=== PATIENT | female | born 1975 | race Caucasian/White ===

== ENCOUNTER 2022-12-29 15:49 | Emergency (ER) | payer MEDICAID ==
[~2022-12-29] VITALS: Ht 170.2 cm; Wt 79.0 kg
[~2022-12-29 15:49] MED LIST: ACETAZOLAMIDE; CRESTOR; FLURAZEPAM; GABA300S PO; HYDROCODONE; LEVE1000 PO; LORAZEPAM; PREN-55 PO; PROAIR; SINGULAIR; SUMATRIPTAN; TOPI-255 PO
[2022-12-29 15:56] VITALS: BP 176/112
[2022-12-29] MEDS ORDERED: ACETAMINOPHEN 325MG TABLET PO PRN (23:00)
== END 2022-12-30 02:21 | disposition left against medical advice (07) ==
LOC: ER 15:59
DX: Z53.21 Procedure and treatment not carried out due to patient leaving prior to being seen by health care provider (principal); R10.9 Unspecified abdominal pain
CPT/HCPCS: 99281

== ENCOUNTER 2024-01-04 17:25 | Emergency (ER) | payer OTHER, MEDICAID ==
[~2024-01-04] VITALS: Ht 165.1 cm; Wt 95.0 kg
[~2024-01-04 17:25] MED LIST changes: -GABA300S PO; +GABA300S4 PO; -TOPI-255 PO; +TOPI-95 PO
[2024-01-04 17:35] VITALS: BP 119/68; PULSE 86; RESP 16; TEMP 98.2; O2SAT 98
[2024-01-04] MEDS ORDERED: ACETAMINOPHEN 325MG TABLET PO STA (17:50)
[2024-01-04 19:47] LABS: BASOPHILS % 0.9 % (0.0-2.0); EOSINOPHILS % 3.2 % (0.0-5.0); HEMATOCRIT. 42.4 % (36.0-48.0); HEMOGLOBIN. 14.3 g/dL (12.0-16.0); MEAN CORPUSCULAR HEMOGLOBIN 31.7 pg (28.0-32.0); MEAN CORPUSCULAR HGB CONC 33.6 g/dL (31.0-37.0); MEAN CORPUSCULAR VOLUME 94.2 fL (81.0-99.0); NEUTROPHILS % 63.9 % (40.0-76.0); PLATELET 211 x1000/uL (130-400); RED CELL DISTRIBUTION WIDTH 14.4 % (11.6-14.6); WHITE BLOOD COUNT 9.1 x1000/uL (4.5-11.0)
[2024-01-04 19:55] LABS: INR 0.9; PROTHROMBIN TIME 9.7 sec (9.6-11.0)
[2024-01-04 19:59] LABS: HCG SCREEN NEGATIVE
[2024-01-04 20:00] LABS: ALANINE AMINOTRANSFERASE 13 IU/L (10-49); ALBUMIN 4.5 g/dL (3.2-4.8); ASPARTATE AMINOTRANSFERASE 16 IU/L (<34); BILIRUBIN TOTAL 0.2 mg/dL (0.1-1.0); CALCIUM 8.8 mg/dL (8.7-10.4); CARBON DIOXIDE 26 mEq/L (21-32); CHLORIDE 107 mEq/L (98-107); CREATININE 0.8 mg/dL (0.6-1.0); ETHANOL BLOOD < 10 mg/dL (<10); GLUCOSE 94 mg/dL (70-105); POTASSIUM 4.1 mEq/L (3.5-5.1); PROTEIN TOTAL 7.5 g/dL (6.0-8.3); SODIUM 139 mEq/L (136-145); UREA NITROGEN BLOOD 16 mg/dL (9-23)
[2024-01-04 20:13] LABS: TROPONIN I HIGH SENSITIVITY < 4 ng/L (3.0-34)
== END 2024-01-04 21:45 | disposition home or self-care (01) ==
LOC: ER 17:25
DX: R55 Syncope and collapse (principal); Z90.49 Acquired absence of other specified parts of digestive tract; Z88.8 Allergy status to other drugs, medicaments and biological substances
CPT/HCPCS: 36415; 71045; 80053; 80320; 84484; 84703; 85025; 93005; 99285; G0480